=== PATIENT | male | born 1970 | race African-American/Black ===

== ENCOUNTER 2021-03-23 02:48 | Inpatient (IN) | payer BC, SELFPAY ==
[~2021-03-23] VITALS: Ht 177.8 cm; Wt 127.0 kg
[2021-03-23] MEDS ORDERED: METO-539 MT (03:08)
[2021-03-23 04:36] LABS: BASOPHILS % 0.7 % (0.0-2.0); EOSINOPHILS % 3.9 % (0.0-5.0); HEMATOCRIT. 44.9 % (42.0-52.0); LYMPHOCYTES % 33.2 % (20.0-50.0); MEAN CORPUSCULAR HEMOGLOBIN 29.7 pg (28.0-32.0); MEAN CORPUSCULAR VOLUME 88.7 fL (80.0-94.0); MEAN PLATELET VOLUME 10.1 fl (7.4-10.4); MONOCYTES % 11.6 % (2.0-8.0); NEUTROPHILS % 50.6 % (40.0-76.0); PLATELET 124 x1000/uL (130-400); RED BLOOD CELL COUNT 5.06 mill/uL (4.7-6.1)
[2021-03-23 04:42] LABS: CHLORIDE 109 mEq/L (98-107)
[2021-03-23 04:58] LABS: D-DIMER 9.54 mg/L FEU (<0.50); PARTIAL THROMBOPLASTIN TIME 24.4 sec (23.4-31.0); PROTHROMBIN TIME 10.3 sec (9.6-11.0)
[2021-03-23] MEDS ORDERED: ENOXAPARIN 150MG/ML SYR SUBCUT NR (05:00)
[2021-03-23] MEDS ORDERED: IOHEXOL-350 100 ML BOTTLE ONE (06:21)
[2021-03-23] MEDS ORDERED: ONDANSETRON HCL 4MG/2ML INJ IV PRN (09:00)
[2021-03-23] MEDS ORDERED: ACETAMINOPHEN 325MG TABLET PO PRN (09:00)
[2021-03-23 16:00] VITALS: BP 157/89
[2021-03-23 16:06] VITALS: BP 157/89
[2021-03-23] MEDS ORDERED: AMLO5TAB4 PO (16:18)
[2021-03-23] MEDS ORDERED: ATOR40TA70 PO (16:18)
[2021-03-23] MEDS: AMLODIPINE 10MG TABLET PO SCH (18:11)
[2021-03-23] MEDS: ENOXAPARIN 150MG/ML SYR SUBCUT SCH (20:01)
[2021-03-23 20:26] VITALS: BP 141/86
[2021-03-24 00:49] VITALS: BP 140/95
[2021-03-24 04:00] VITALS: BP 143/92
[2021-03-24 08:00] VITALS: BP 151/100
[2021-03-24] MEDS ORDERED: IPRATROPIUM/ALBUTEROL 0.5-3(2.5)MG/3ML NEB HHN PRN (08:15)
[2021-03-24] MEDS: ENOXAPARIN 150MG/ML SYR SUBCUT SCH ×2 (08:40→20:55)
[2021-03-24] MEDS: AMLODIPINE 10MG TABLET PO SCH (08:42)
[2021-03-24 12:00] VITALS: BP 153/103
[2021-03-24] MEDS ORDERED: LOSARTAN POTASSIUM 50 MG TABLET PO NR (13:30)
[2021-03-24 15:50] VITALS: BP 169/109
[2021-03-24] MEDS: CLONIDINE 0.1MG TABLET PO PRN (16:31)
[2021-03-24] MEDS ORDERED: METOPROLOL TARTRATE 100MG TABLET PO NR (18:15)
[2021-03-24] MEDS ORDERED: XAR15 MT (19:30)
[2021-03-24] MEDS ORDERED: RIVA20TA MT (19:30)
[2021-03-24 20:00] VITALS: BP 162/91
[2021-03-25] VITALS (8 sets, daily range): BP systolic 128–153; BP diastolic 78–104
[2021-03-25] MEDS: AMLODIPINE 10MG TABLET PO SCH (09:09)
[2021-03-25] MEDS: ENOXAPARIN 150MG/ML SYR SUBCUT SCH ×2 (09:11→20:10)
[2021-03-25] MEDS ORDERED: AMLO10TA80 MT (17:26)
[2021-03-25] MEDS: CLONIDINE 0.1MG TABLET PO PRN (17:54)
[2021-03-25] MEDS ORDERED: HYDRALAZINE 20MG/ML VIAL IV PRN ×2 (19:30→19:45)
== END 2021-03-25 21:40 | disposition home or self-care (01) | DRG 176 ==
LOC: ER 02:48 → 6WST 08:16 → ENRESERV 15:17
PROVIDERS: ADMIT Internal Medicine; ATTEND Internal Medicine
DX: I26.99 Other pulmonary embolism without acute cor pulmonale (principal); Z68.41 Body mass index [BMI] 40.0-44.9, adult; E66.9 Obesity, unspecified; E78.5 Hyperlipidemia, unspecified; I16.0 Hypertensive urgency; M10.9 Gout, unspecified; I87.2 Venous insufficiency (chronic) (peripheral); S81.801A Unspecified open wound, right lower leg, initial encounter; X58.XXXA Exposure to other specified factors, initial encounter; R73.03 Prediabetes; I10 Essential (primary) hypertension; Z86.718 Personal history of other venous thrombosis and embolism; Z79.899 Other long term (current) drug therapy; Z71.3 Dietary counseling and surveillance; Y93.89 Activity, other specified; Y92.89 Other specified places as the place of occurrence of the external cause; Y99.8 Other external cause status
CPT/HCPCS: 36415; 71275; 80053; 83880; 84484; 85025; 85379; 93306; 93970; 99285; J0360; J1650; Q9967